=== PATIENT | female | born 1965 | race Two or more races ===

== ENCOUNTER 2024-12-16 08:45 | Outpatient (RCR) | payer MEDICAID, SELFPAY ==
--- NOTE | 2024-12-02 13:50 | CTCCONSULT_ITS ---
[facility] [address] [place], [place] [address] Consultation Note Date: 12/02/2024 MR#: [id number] Name: JUANITO RESENDEZ : 1965 Dx: C20 Malignant neoplasm of rectum Referring physician. Micah Lisa MD Reason for consultation. Patient with stage IIIb colorectal CA status post loop diverting colostomy neoadjuvant FOLFOX 9 cycles referred for radiation therapy to given with 5-FU infusion. History of Present Illness: Patient is a 59-year-old gentleman who experienced lower GI bleeding and had colonoscopy performed 04/07/2024 which revealed rectal mass that was obstructing and unable to pass his finger. Biopsy revealed at least intramucosal adenocarcinoma. MRI 04/13/2024 revealed extremely large fungating mass within the rectosigmoid region measuring 7.8 x 3.9 x 5.9 cm extending through the muscularis at the 11 o'clock position into the perirectal fat. Several adjacent lymph nodes seen in the pelvis. CT chest abdomen pelvis 04/10/2024 scattered multiple small periaortic lymph nodes, focal bowel wall thickening in colorectal area. T3 pN1 M0 stage IIIb. 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 Patient underwent loop diverting colostomy 04/18/2024 underwent 9 cycles of FOLFOX chemo between 06/10/2024 through 10/06/2024. Patient is now ready for the radiation portion to be given along with 5-FU to be followed by eventual surgery. Past Medical History: History of asthma diabetes type 2 hypertension Meds. Ferrous sulfate Advair albuterol lidocaine cream vitamin D3 olanzapine ondansetron lisinopril Social History: Latvian-speaking originally from [place] currently lives in [place] with denies smoking drinking Review of Systems: Has had nausea symptoms Physical Exam: General: Well-appearing lady no acute distress HEENT: Atraumatic normocephalic extraocular is intact no oral lesions no cervical or supraclavicular adenopathy CV: Chest clear to auscultation ABD: Soft colostomy bag noted functioning well EXT: No signs of clubbing or edema Assessment:1. Patient with stage IIIb T3b N1 M0 obstructing rectosigmoid CA. 2. Underwent loop diverting colostomy 04/18/2024 3. Completed neoadjuvant FOLFOX 9 cycles completed. 10/06/2024. 4. Radiation therapy 5000 cGy via VMAT over 5 weeks will be offered patient along with infusional 5-FU. Side effects explained consent signed. Anticipate starting late November to-late December 2024, getting authorization simulation etc. 5. Thank you very much for allowing me to evaluate and manage this patient. Cc: Micah Lisa MD Electronically signed by: Mumtaz Price MD, DABR 12/02/2024 1:48 PM
--- NOTE | 2024-12-02 13:53 | CTCTXPLN_ITS ---
[facility] [address] [place], [place] [address] Physician Clinical Treatment Planning Note Date of Service: 12/02/2024 Name: JUANITO RESENDEZ : 1965 The patient has agreed to proceed with Radiation therapy. Tests and supporting medical records were interpreted to assist in defining the tumor location and extent of disease. Further imaging will be necessary to contour and delineate the volume to which the XRT will be provided. A. Treatment Intent: Curative B. Modality: 10 MV C. Requested Technique: VMAT D. Treatment Site: Pelvis E. Critical structures to be contoured on plan: F. In order to accomplish this plan, I am ordering/Prescribing the followin. Simulations (s) will be performed to accomplish a reproducible treatment position, to determine optimal treatment portals/beam arrangements, to design beam modifying devices and verify treatment portals on patient prior to the commencement of Radiation Therapy. Pelvis 2. Devices; for immobilization and beam shaping: Vac-Tanisha 3. CT Guidance for placement of XRT gallego Scan area: 4. Portal images Frequency: 5. Invivo transit dose measurement once per week on all VMAT patients. 6. Special Physics Consult Requested for: 7. Other requests: Special procedure chemoradiation G. Dose Objectives: Curative Electronically signed by: Mumtaz Price M.D. 12/02/2024 1:51 PM
--- NOTE | 2024-12-02 13:54 | CTCTXPLNST_ITS ---
Radiation Oncology Treatment Planning Sheet Name: JUANITO RESENDEZ MR#: [id number] : 1965 Dx: C20 Malignant neoplasm of rectum Date of Service: 12/02/2024 Account #: ?? Pt Treatment Intent: curative palliative other: Stage: Procedure CPT # Ordered Spec. Procedure 35150 1 Canales Complex (set-up) 85441 pelvis 1 Canales Simple 27759 IMRT Plan 18765 1 MLC Devices VMAT 35477 3 Canales 3 D 68849 TRTMT dev Complex 30396 Vac-Tanisha 1 TRTMT dev simple 44773 Basic Glenn 10057 9 Special Dosimetry 48945 Spec Physics 84116 Port Films 10942 SRS Cranial/1FX 14622 SBR 5 FX or Less /ex: 5 = 5 fx 36736 IMRT Simple 00489 5000 25 IMRT Complex 27382 IGRT 05688 25 Rad del Oxyrane UK 6-10 68084 Rad del Oxyrane UK 11 07760 Cont Med Physics 74870 5 Treatment Planning 06958 1 Weekly Evaluation 82246 5 Rad del com 20 mev 95968 Special Port Plan 25023 TRTMT dev inter 17909 Isodose Complex 65670 Isodose simple 64629 Resp Motion Mgmt Simulation 99868 Placement of Fiducial Markers 85552 Electronically Signed By: Mumtaz Price MD, SHONR 12/02/2024 1:52 PM
== END 2024-12-22 23:59 | disposition home or self-care (01) ==
LOC: SCTC 08:45
PROVIDERS: PCP Family Medicine; Referring Provider Internal Medicine Hematology & Oncology; Visit Provider Radiology Therapeutic Radiology
DX: Z51.0 Encounter for antineoplastic radiation therapy (principal); C19 Malignant neoplasm of rectosigmoid junction
CPT/HCPCS: 77014; 77290; 77300; 77301; 77334; 77338; 77470; 99213; G0463

== ENCOUNTER 2025-01-22 08:30 | Outpatient (RCR) | payer MEDICAID, SELFPAY | END 2025-01-22 23:59 | disposition home or self-care (01) | LOC: SCTC 08:30 | PROVIDERS: PCP Family Medicine; Referring Provider Family Medicine; Visit Provider Radiology Therapeutic Radiology | DX: Z51.0 Encounter for antineoplastic radiation therapy (principal); C19 Malignant neoplasm of rectosigmoid junction; Z93.3 Colostomy status; Z92.21 Personal history of antineoplastic chemotherapy | CPT/HCPCS: 77336; 77385 ==

== ENCOUNTER 2025-02-09 09:15 | Outpatient (RCR) | payer MEDICAID, SELFPAY ==
--- NOTE | 2025-01-25 09:13 | CTCTRTNOTE_ITS ---
[facility] [address] [place], [place] [address] Weekly Management Date: 01/25/2025 ?? Name: JUANITO STRAUSSAltagracia Rojas.: 1965 A. Patient is currently at 4800 cGy. B. Patient is tolerating treatment well. C. Resume radiation therapy. Electronically signed by: Mumtaz Price M.D. 01/25/2025 9:11 AM
== END 2025-02-21 23:59 | disposition home or self-care (01) ==
LOC: SCTC 09:15
PROVIDERS: PCP Family Medicine; Referring Provider Family Medicine; Visit Provider Radiology Therapeutic Radiology
DX: Z51.0 Encounter for antineoplastic radiation therapy (principal); C20 Malignant neoplasm of rectum
CPT/HCPCS: 77336; 77385; 99212; G0463